=== PATIENT | male | born 1955 | race Caucasian/White ===

== ENCOUNTER 2018-07-27 11:46 | Day surgery (SDC) | payer OTHER ==
[2018-07-27 13:22] LABS: ADD MAN DIFF? NO
[2018-07-27 13:24] LABS: BASOPHILS % 0.1 % (0.0-2.0); EOSINOPHILS # 0.1 10^3/ul (0.0-0.5); EOSINOPHILS % 1.2 % (0.0-7.0); HEMATOCRIT 44.6 % (42.0-52.0); HEMOGLOBIN 14.4 g/dl (14.0-18.0); LYMPHOCYTES # 2.6 10^3/ul (0.8-2.9); LYMPHOCYTES % 28.1 % (15.0-51.0); MEAN CORPUSCULAR HEMOGLOBIN 29.8 pg (29.0-33.0); MEAN CORPUSCULAR HGB CONC 32.3 g/dl (32.0-37.0); MEAN CORPUSCULAR VOLUME 92.3 fl (82.0-101.0); MEAN PLATELET VOLUME 9.6 fl (7.4-10.4); MONOCYTE # 0.5 10^3/ul (0.3-0.9); MONOCYTES % 4.9 % (0.0-11.0); NEUTROPHIL # 6.1 10^3/ul (1.6-7.5); NEUTROPHILS % 65.5 % (39.0-77.0); PLATELET COUNT 232 10^3/UL (140-415); RED BLOOD COUNT 4.83 10^6/ul (4.70-6.10); RED CELL DISTRIBUTION WIDTH 12.8 % (11.5-14.5)
[2018-07-27 13:24] LABS: WHITE BLOOD COUNT 9.2 10^3/ul (4.8-10.8)
[2018-07-27 13:42] LABS: ANION GAP 11 (8-16); BLOOD UREA NITROGEN 17 mg/dl (7-20); CALCIUM 9.4 mg/dl (8.4-10.2); CARBON DIOXIDE 28 mmol/L (21-31); CHLORIDE 109 mmol/L (97-110); CREATININE 0.89 mg/dl (0.61-1.24); GLUCOSE 89 mg/dl (70-220); POTASSIUM 4.9 mmol/L (3.5-5.1); SODIUM 143 mmol/L (135-144)
[2018-07-27 13:43] LABS: INR 0.91; PROTIME 12.3 Sec (11.9-14.9)
[2018-07-27] MEDS ORDERED: BACITRACIN/POLYMYXIN 28.35 GM OINT TOP (13:58)
[2018-07-27] MEDS ORDERED: MEPERIDINE 25 MG INJ IV (16:00)
[2018-07-27] MEDS ORDERED: FENTAnyl 50 MCG/ML VIAL IV (16:00)
[2018-07-27] MEDS ORDERED: PROCHLORPERAZINE 10 MG INJ IV (16:00)
[2018-07-27] MEDS ORDERED: ONDANSETRON 4 MG INJ IV (16:00)
[2018-07-27] MEDS ORDERED: DIPHENHYDRAMINE 50 MG INJ IV (16:00)
[2018-07-27] MEDS ORDERED: OXYCODONE/ACETAMINOPHEN (5/325) TAB PO (16:00)
[2018-07-27] MEDS ORDERED: LIDOCAINE 2% (SDV) 5 ML INJ (16:03)
[2018-07-27] MEDS ORDERED: MIDAZOLAM 1 MG/ML 2 ML INJ (16:03)
[2018-07-27] MEDS ORDERED: PROPOFOL 20 ML (16:03)
[2018-07-27] MEDS ORDERED: ONDANSETRON 4 MG INJ (16:13)
[2018-07-27] MEDS ORDERED: SODIUM CL BACTERIOSTATIC 30 ML INJ (16:13)
[2018-07-27] MEDS ORDERED: DEXAMETHASONE 4 MG/ML 1 ML INJ (16:13)
[2018-07-27] MEDS ORDERED: CEFAZOLIN 1 GM INJ (16:15)
[2018-07-27] MEDS ORDERED: FAMOTIDINE 20 MG INJ (16:15)
[2018-07-27] MEDS ORDERED: FENTAnyl 50 MCG/ML VIAL (16:16)
[2018-07-27] MEDS ORDERED: EPHEDrine SULFATE 50 MG/5 ML SYG (16:21)
[2018-07-27] MEDS: ROPIVACAINE 0.5 % 30 ML VIAL (17:13)
[2018-07-27] MEDS: HEPARIN 1000 UNITS/ML 10 ML INJ (17:14)
[2018-07-27] MEDS: CITRATE DEXTROSE SOLUTION 1,000 ML SOLUTION MC (17:15)
[2018-07-27] MEDS ORDERED: ACETAMINOPHEN 1000MG/100ML IV 100 ML (17:25)
[2018-07-27] MEDS: HYDROmorphONE 1 MG/5 ML IV SYRINGE IV ×2 (17:57→18:04)
[2018-07-27] MEDS ORDERED: oxyCODONE 5 MG TAB PO (18:00)
[2018-07-27] MEDS ORDERED: morphine 2 MG INJ IV (18:00)
== END 2018-07-27 19:00 | disposition home or self-care (01) ==
LOC: SDS 11:46
DX: M23.251 Derangement of posterior horn of lateral meniscus due to old tear or injury, right knee (principal); M23.221 Derangement of posterior horn of medial meniscus due to old tear or injury, right knee; M94.261 Chondromalacia, right knee; M12.861 Other specific arthropathies, not elsewhere classified, right knee
CPT/HCPCS: 29880; 80048; 85025; 85610; 85730; 87070; 88305